=== PATIENT | female | born 1980 | race Caucasian/White ===

== ENCOUNTER → 2023-11-22 14:42 | Outpatient (REF) | payer BC, SELFPAY ==
[2023-11-22 14:53] VITALS: BP 125/69; BP_SYST 73
== END ==
LOC: RADI 14:42
PROVIDERS: ATTENDING PHYSICIAN Surgery; FAMILY PHYSICIAN Family Medicine
DX: E04.1 Nontoxic single thyroid nodule (principal)
CPT/HCPCS: 88173; 10005